=== PATIENT | female | born 1970 | race American Indian/Alaskan Native ===

== ENCOUNTER 2017-09-11 08:12 | Outpatient (CLI) | payer BC ==
--- NOTE | 2017-09-11 09:00 | XRay Report ---
XRAY BILATERAL FOOT THREE VIEWS EACH: 09/11/17 08:12:00 CLINICAL: Bilateral foot pain. The greatest pain is in the right heel. FINDINGS: Right: Mild osteopenia. 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 No erosions. No fracture or dislocation. Large Achilles and plantar calcaneal enthesophytes. Mild nonspecific soft tissue swelling of the forefoot and midfoot. Left: Mild osteopenia. 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 No fracture or dislocation. Large Achilles and plantar calcaneal enthesophytes. Mild nonspecific soft tissue swelling of the forefoot and midfoot. IMPRESSION: Bilateral calcaneal enthesopathy with large Achilles and plantar enthesophytes. Bilateral hallux valgus deformity.
== END 2017-09-11 08:13 | disposition home or self-care (01) ==
LOC: SPVIMAG 08:12
PROVIDERS: ATTEND Orthopaedic Surgery Sports Medicine
DX: M19.072 Primary osteoarthritis, left ankle and foot (principal); M19.071 Primary osteoarthritis, right ankle and foot; M20.12 Hallux valgus (acquired), left foot; M20.11 Hallux valgus (acquired), right foot; M85.871 Other specified disorders of bone density and structure, right ankle and foot; M85.872 Other specified disorders of bone density and structure, left ankle and foot; M77.32 Calcaneal spur, left foot; M77.31 Calcaneal spur, right foot